=== PATIENT | female | born 1970 | race Caucasian/White ===

== ENCOUNTER 2018-04-23 22:27 | Emergency (ER) | payer OTHER ==
[~2018-04-23] VITALS: Ht 162.6 cm; Wt 76.4 kg
[2018-04-23] MEDS ORDERED: SERT-155 (22:33)
[2018-04-23] MEDS ORDERED: IBUP80TA PO (22:33)
[2018-04-23] MEDS ORDERED: NS 1,000 ML IV ONE ×2 (22:45→23:00)
[2018-04-23] MEDS ORDERED: KETOROLAC 30 MG/ML VIAL (J1885) IV ONE (23:00)
[2018-04-23] MEDS ORDERED: MORPHINE 4 MG/ML 1ML VIAL/SYRINGE (J2270) IV ONE (23:00)
[2018-04-23 23:20] LABS: BASO # 0.1 10^3/uL (0.0-0.2); BASO % 0.8 % (0.0-1.0); EOS # 0.1 10^3/uL (0.0-0.50); EOS % 1.8 % (0.0-3.0); HEMATOCRIT 38.6 % (36.0-47.0); HEMOGLOBIN 11.9 g/dl (12.0-15.5); LYMPH # 2.1 10^3/uL (1.5-4.5); LYMPH % 33.3 % (24.0-44.0); MEAN CORPUSCULAR HEMOGLOBIN 21.7 pg (27.0-33.0); MEAN CORPUSCULAR HGB CONC 30.8 g/dl (32.0-36.5); MEAN CORPUSCULAR VOLUME 70.3 fl (80.0-96.0); MONO # 0.5 10^3/uL (0.0-0.8); MONO % 7.3 % (0.0-5.0); NEUTROPHILS # 3.5 10^3/uL (1.8-7.7); NEUTROPHILS % 55.8 % (36.0-66.0); PLATELET COUNT, AUTOMATED 214 10^3/uL (150-450); RED BLOOD COUNT 5.49 10^6/uL (4.00-5.40); WHITE BLOOD COUNT 6.2 10^3/uL (4.0-10.0)
[2018-04-23 23:29] LABS: HCG, SERUM QUALITATIVE NEGATIVE (NEGATIVE)
[2018-04-23] MEDS ORDERED: HYDROMORPHONE HCL 0.5 MG/ 0.5 ML SYRINGE (J1170 PER 1) IV ONE (23:30)
[2018-04-23 23:42] LABS: ALBUMIN 3.9 GM/DL (3.2-5.2); ALT/SGPT 39 U/L (12-78); BILIRUBIN,DIRECT 0.2 MG/DL (0.0-0.2); BILIRUBIN,TOTAL 0.7 MG/DL (0.2-1.0); BLOOD UREA NITROGEN 16 MG/DL (7-18); CALCIUM LEVEL 8.3 MG/DL (8.5-10.1); CARBON DIOXIDE LEVEL 28 MEQ/L (21-32); CHLORIDE LEVEL 104 MEQ/L (98-107); CREATININE FOR GFR 0.71 MG/DL (0.55-1.30); GLOMERULAR FILTRATION RATE > 60.0 (>58); GLUCOSE, FASTING 114 MG/DL (70-100); LIPASE 146 U/L (73-393); POTASSIUM SERUM 3.7 MEQ/L (3.5-5.1); SODIUM LEVEL 139 MEQ/L (136-145); TOTAL PROTEIN 7.6 GM/DL (6.4-8.2)
[2018-04-23] MEDS ORDERED: TAMSULOSIN 0.4 MG CAP PO ONE (23:45)
--- NOTE | 2018-04-24 00:22 | REPVR ---
EXAM: CT Abdomen and Pelvis Without Contrast EXAM DATE/TIME: 04/23/2018 11:35 PM CLINICAL HISTORY: 48 years old, female; Pain; Abdominal pain; Additional info: Flank pain TECHNIQUE: Axial computed tomography images of the abdomen and pelvis without contrast. All CT scans at this facility use at least one of these dose optimization techniques: automated exposure control; mA and/or kV adjustment per patient size (includes targeted exams where dose is matched to clinical indication); or iterative reconstruction. Coronal and sagittal reformatted images were created and reviewed. COMPARISON: No relevant prior studies available. FINDINGS: Lower thorax: No acute findings. ABDOMEN: Liver: Normal. No mass. Gallbladder and bile ducts: The gallbladder is contracted with no stones. Pancreas: Normal. No ductal dilation. Spleen: The spleen measures 14.3 cm. Adrenals: Normal. No mass. Kidneys and ureters: Small non-obstructing bilateral renal calculi. Slight right perinephric induration with mild right hydronephrosis and hydroureter which extends to a right UVJ calculus which measures 2 x 3.5 x 2.5 mm. Stomach and bowel: Borderline distention of the stomach with food material. Appendix: A normal appendix is seen. PELVIS: Bladder: Unremarkable as visualized. Reproductive: There is an IUD in the uterus. ABDOMEN and PELVIS: Intraperitoneal space: Normal. No free air. No significant fluid collection. Bones/joints: No acute fracture. No dislocation. Soft tissues: Unremarkable. Vasculature: Normal. No abdominal aortic aneurysm. Lymph nodes: Normal. No enlarged lymph nodes. IMPRESSION: 1. Right UVJ calculus measuring 2 x 2.5 x 3.5 mm with secondary obstructive uropathy of the right upper tract. 2. Small nonobstructing bilateral renal calculi. 3. IUD in the uterus. 4. There is borderline distention of the stomach with food material which in view of a contracted gallbladder likely reflects recent ingestion. 5. Mild splenomegaly. Electronically signed by: Nixon Nelson On 04/24/2018 00:22:08 AM
[2018-04-24 01:18] VITALS: BP 130/62
== END 2018-04-24 01:45 | disposition home or self-care (01) ==
LOC: M ED 22:27
DX: N20.1 Calculus of ureter (principal); Z88.0 Allergy status to penicillin; Z88.1 Allergy status to other antibiotic agents; Z91.011 Allergy to milk products
CPT/HCPCS: 74176; 80048; 80076; 83690; 84703; 85025; 96374; 96375; 99284; J1170; J1885; J2270

== ENCOUNTER → 2018-04-28 | Outpatient (REF) | payer OTHER ==
[~2018-04-28] MED LIST: IBUP80TA PO; SERT-155
== END ==
LOC: M SFHCWAGY 11:01
PROVIDERS: ATTEND Family Medicine
DX: Z12.4 Encounter for screening for malignant neoplasm of cervix (principal)

== ENCOUNTER → 2023-02-25 | Outpatient (CLI) | payer OTHER ==
[~2023-02-25] MED LIST changes: -SERT-155; +SERT50TA29
[2023-02-25 15:49] LABS: BASO # 0.1 10^3/uL (0.0-0.2); BASO % 0.9 % (0.0-1.0); EOS # 0.1 10^3/uL (0.0-0.5); EOS % 1.5 % (0.0-3.0); HEMATOCRIT 38.7 % (36.0-47.0); LYMPH % 35.8 % (24.0-44.0); MEAN CORPUSCULAR HEMOGLOBIN 21.9 pg (27.0-33.0); MEAN CORPUSCULAR VOLUME 70.5 fl (80.0-96.0); MONO # 0.4 10^3/uL (0.0-0.8); MONO % 6.8 % (2.0-8.0); NEUTROPHILS % 54.6 % (36.0-66.0); PLATELET COUNT, AUTOMATED 210 10^3/uL (150-450); RED BLOOD COUNT 5.49 10^6/uL (4.00-5.40); WHITE BLOOD COUNT 5.5 10^3/uL (4.0-10.0)
[2023-02-25 16:06] LABS: ERYTHROCYTE SEDIMENTATION RATE 16 mm/hr (0-30)
[2023-02-25 16:07] LABS: C REACTIVE PROTEIN QUANTITATIV < 0.40 MG/DL (<1.0)
[2023-02-25 16:08] LABS: RHEUMATOID FACTOR QUANT < 3.5 IU/ML (<14)
== END ==
LOC: M PLALAB 12:19
PROVIDERS: ATTEND Physician Assistant
DX: M19.072 Primary osteoarthritis, left ankle and foot (principal)

== ENCOUNTER → 2023-12-05 | Outpatient (REF) | payer BC | LOC: M LAB REF 10:04 | PROVIDERS: ATTEND Student in an Organized Health Care Education/Training Program | DX: L03.011 Cellulitis of right finger (principal) ==

== ENCOUNTER 2024-09-06 07:19 | Observation (INO) | payer BC ==
[2024-09-06] VITALS (8 sets, daily range): BP systolic 133–150; BP diastolic 76–90; TEMP 97–97.7; O2SAT 83–95
[~2024-09-06] VITALS: Ht 162.6 cm; Wt 80.7 kg
[~2024-09-06 07:19] MED LIST changes: +LISD50CA PO; +ZOLO100T PO
[2024-09-06] MEDS ORDERED: LR 1,000 ML IV SCH (07:50)
[2024-09-06] MEDS ORDERED: LIDOCAINE 1% MDV 20 ML VIAL As Ordered ONE (08:12)
[2024-09-06] MEDS ORDERED: ROCURONIUM BROMIDE 50MG/5ML VIAL As Ordered ONE (08:29)
[2024-09-06] MEDS ORDERED: LIDOCAINE 2% 100 MG/5 ML SDV (FOR ANES.) As Ordered ONE (08:29)
[2024-09-06] MEDS ORDERED: ONDANSETRON 4MG 2ML VIAL As Ordered ONE (08:29)
[2024-09-06] MEDS ORDERED: dexAMETHasone 4 MG/ML 1 ML VIAL As Ordered ONE (08:29)
[2024-09-06] MEDS ORDERED: MIDAZOLAM INJ 2 MG/2 ML VIAL As Ordered ONE (08:30)
[2024-09-06] MEDS: METHYLENE BLUE 0.5% (5 MG/ML) 10 ML AMP As Ordered ONE (09:38)
[2024-09-06] MEDS ORDERED: LACRILUBE (AKWA TEARS) OPHTH OINT 3.5 GM As Ordered ONE (10:20)
[2024-09-06] MEDS: ceFAZolin SOD 2 GM IV ONCE IV ONE (10:20)
[2024-09-06] MEDS ORDERED: PHENYLephrine 500MCG 5ML (100MCG/ML) SYRINGE As Ordered ONE (10:44)
[2024-09-06] MEDS: HEPARIN SOD 5000 UNITS/ML 1 ML VIAL/SYRINGE SQ ONE (10:50)
[2024-09-06] MEDS ORDERED: HYDROmorphone HCL 2 MG/ML 1 ML VIAL As Ordered ONE (11:03)
[2024-09-06] MEDS ORDERED: GLYCOPYRROLATE INJ 0.2 MG/ML 2 ML VIAL As Ordered ONE (11:06)
[2024-09-06] MEDS ORDERED: ACETAMINOPHEN 1000MG/100ML IV BAG As Ordered ONE (11:14)
[2024-09-06] MEDS ORDERED: SUGAMMADEX SODIUM 500 MG/5 ML VIAL As Ordered ONE (11:26)
[2024-09-06] MEDS: GENTAMICIN SULF 80 MG/2 ML VIAL As Ordered ONE (12:15)
[2024-09-06] MEDS ORDERED: ONDANSETRON 4MG 2ML VIAL IV PRN (12:30)
[2024-09-06] MEDS ORDERED: ACETAMINOPHEN 325 MG TAB PO PRN ×2 (12:30→18:15)
[2024-09-06] MEDS ORDERED: HYDROMORPHONE HCL 0.5 MG/0.5 ML SYRINGE IV PRN (13:05)
[2024-09-06] MEDS: LR 1,000 ML IV SCH ×2 (13:05→16:43)
[2024-09-06] MEDS: ONDANSETRON 4MG 2ML VIAL IV PRN (16:05)
[2024-09-06] MEDS: ceFAZolin SODIUM 2 GM in DEXTROSE 5% (D5W) ADV/MINI-BAG 50 ML IV SCH (17:12)
[2024-09-06] MEDS: traMADol 50 MG TAB PO PRN (17:13)
[2024-09-06] MEDS ORDERED: PERCOCET 5MG/325MG TAB PO PRN (21:30)
[2024-09-07 05:44] VITALS: BP 122/64; TEMP 97.7; O2SAT 95
[2024-09-07 07:47] VITALS: BP 117/71; TEMP 97.7; O2SAT 96
[2024-09-07] MEDS ORDERED: TRAM50TA2 PO (09:08)
[2024-09-07 12:13] VITALS: BP 121/70; TEMP 97.8; O2SAT 94
== END 2024-09-07 13:45 | disposition home or self-care (01) ==
LOC: M SDC 07:19 → M RR INP 07:20 → M MS5PR 16:20
PROVIDERS: ADMIT Surgery; ATTEND Surgery
DX: D05.02 Lobular carcinoma in situ of left breast (principal); Z88.1 Allergy status to other antibiotic agents; Z88.0 Allergy status to penicillin; Z88.2 Allergy status to sulfonamides; Z91.011 Allergy to milk products; Z79.899 Other long term (current) drug therapy
CPT/HCPCS: 14301; 19301; 38525; 76942; 81025; 88302; 88305; 88307; 96374; 96375; A9520; J0131; J0665; J0666; J0690; J1100; J1171; J1580; J1596; J2250; J2371; J2405; J3010

== ENCOUNTER → 2024-10-04 | Outpatient (CLI) | payer BC ==
[~2024-10-04] MED LIST changes: +TRAM50TA2 PO
== END ==
LOC: M ONCR 14:01
PROVIDERS: ATTEND General Practice
DX: C50.412 Malignant neoplasm of upper-outer quadrant of left female breast (principal); Z80.0 Family history of malignant neoplasm of digestive organs; Z88.0 Allergy status to penicillin; Z88.1 Allergy status to other antibiotic agents; Z88.2 Allergy status to sulfonamides; Z91.011 Allergy to milk products

== ENCOUNTER 2024-10-11 10:50 | Outpatient (RCR) | payer BC | END 2024-10-21 | LOC: M ONCR 10:50 | PROVIDERS: ATTEND General Practice | DX: Z51.0 Encounter for antineoplastic radiation therapy (principal); C50.411 Malignant neoplasm of upper-outer quadrant of right female breast ==

== ENCOUNTER → 2024-11-20 | Outpatient (RCR) | payer BC | LOC: M ONCR 11-05 08:02 | PROVIDERS: ATTEND General Practice | DX: Z51.0 Encounter for antineoplastic radiation therapy (principal); C50.412 Malignant neoplasm of upper-outer quadrant of left female breast ==

== ENCOUNTER 2024-12-03 08:04 | Outpatient (RCR) | payer BC ==
[2024-12-03] MEDS ORDERED: ANAS1TAB2 PO (08:47)
== END 2024-12-21 ==
LOC: M ONCR 08:04
PROVIDERS: ATTEND General Practice
DX: Z51.0 Encounter for antineoplastic radiation therapy (principal); C50.411 Malignant neoplasm of upper-outer quadrant of right female breast

== ENCOUNTER → 2025-01-01 | Outpatient (CLI) | payer BC ==
[~2025-01-01] MED LIST changes: +ANAS1TAB2 PO; +TAMO20TA8 PO
== END ==
LOC: M ONCR 08:02
PROVIDERS: ATTEND General Practice
DX: C50.412 Malignant neoplasm of upper-outer quadrant of left female breast (principal); Z17.0 Estrogen receptor positive status [ER+]; Z17.21 Progesterone receptor positive status; Z17.32 Human epidermal growth factor receptor 2 negative status; Z98.890 Other specified postprocedural states; Z79.810 Long term (current) use of selective estrogen receptor modulators (SERMs); Z79.899 Other long term (current) drug therapy; Z92.3 Personal history of irradiation; Z88.0 Allergy status to penicillin; Z88.1 Allergy status to other antibiotic agents; Z88.2 Allergy status to sulfonamides; Z91.0110 Allergy to milk products, unspecified